=== PATIENT | female | born 1940 ===

== ENCOUNTER 2017-10-14 15:59 | Inpatient (IN) | payer MEDICARE, MEDICAID ==
[~2017-10-14] VITALS: Ht 165.1 cm; Wt 77.1 kg
[2017-10-14] MEDS ORDERED: IV NORMAL SALINE 1000 ML BAG IV ONE ×2 (16:15→17:30)
[2017-10-14] MEDS ORDERED: METF-494 PO (16:27)
[2017-10-14] MEDS ORDERED: METF500T6 PO (16:27)
[2017-10-14] MEDS ORDERED: ALPR0.25 PO (16:27)
[2017-10-14] MEDS ORDERED: SERT50TA PO (16:27)
[2017-10-14] MEDS ORDERED: SIMV20TA6 PO (16:27)
[2017-10-14] MEDS ORDERED: METO-356 PO (16:27)
[2017-10-14 17:14] LABS: CARBON DIOXIDE 26 mmol/L (21-32); CHLORIDE 97 mmol/L (98-107); CREATININE 1.5 mg/dL (0.6-1.3); GLUCOSE 228 mg/dL (74-106); POTASSIUM 2.9 mmol/L (3.5-5.1); UREA NITROGEN, BLOOD 24 mg/dL (7-18)
[2017-10-14 17:15] LABS: BASOPHILS % (AUTO) 0.3 % (0.0-2.0); HEMATOCRIT 34.9 % (31.2-41.9); LYMPHOCYTES # (AUTO) 0.8 K/uL (20.0-40.0); LYMPHOCYTES % (AUTO) 8.6 % (20.5-51.5); MEAN CORPUSCULAR HGB CONC 34 g/dL (32.3-35.6); MEAN CORPUSCULAR VOLUME 90.7 fL (75.5-95.3); MONOCYTES % (AUTO) 10.7 % (0.0-11.0); NEUTROPHILS # (AUTO) 7.5 K/uL (1.8-8.9); NEUTROPHILS % (AUTO) 80.4 % (38.5-71.5); PLATELET COUNT (AUTO) 190 K/uL (179-408); RED BLOOD CELL COUNT(AUTO) 3.85 MIL/uL (3.63-4.92); WHITE BLOOD COUNT (AUTO) 9.4 K/uL (3.8-11.8)
[2017-10-14 17:29] LABS: ALANINE AMINOTRANSFERASE 50 U/L (14-59); ALKALINE PHOSPHATASE 65 U/L (50-136); ASPARTATE AMINOTRANSFERASE 42 U/L (15-37); BILIRUBIN,DIRECT 0.1 mg/dL (0.0-0.2); BILIRUBIN,TOTAL 0.4 mg/dL (0.2-1.0); TOTAL PROTEIN, SERUM 6.9 g/dL (6.4-8.2)
[2017-10-14] MEDS ORDERED: POTASSIUM BICARBONATE/CIT AC 25 MEQ TABLET.EFF PO ONE (17:30)
[2017-10-14] MEDS ORDERED: LEVOFLOXACIN 750 MG/D5W 150 ML PIGGYBACK IV ONE (17:30)
[2017-10-14] MEDS ORDERED: POTASSIUM BICARBONATE/CIT AC 25 MEQ TABLET.EFF ONE (17:39)
[2017-10-14] MEDS ORDERED: LEVOFLOXACIN 750MG/D5W 150 ML IV ONE (17:39)
--- NOTE | 2017-10-14 18:30 | NUR ---
Per Dr. Page she has spoken with Dr. Chakraborty and pt to be admitted to tele. Pt resting with family at bedside, NAD noted.
--- NOTE | 2017-10-14 19:10 | NUR ---
Hands off report given to PRAFUL Christensen. Pending tele admission post change of shift.
--- NOTE | 2017-10-14 20:50 | NUR ---
REPORT GIVEN TO PRAUFL MENDOZA
--- NOTE | 2017-10-14 21:50 | NUR ---
Pt. admitted to TELEMETRY, under care of Dr. UREÑA Belongs List completed
[2017-10-14] MEDS ORDERED: MELATONIN 3 MG TABLET PO PRN (22:00)
[2017-10-14] MEDS ORDERED: MORPHINE SULFATE 4 MG/1 ML DISP.SYRIN IV PRN (22:00)
[2017-10-14] MEDS ORDERED: ONDANSETRON 4 MG/2 ML VIAL IV PRN (22:00)
[2017-10-14] MEDS ORDERED: INSULIN REGULAR, HUMAN 300 UNIT/3 ML VIAL SQ PRN (22:00)
[2017-10-14] MEDS ORDERED: AZITHROMYCIN IV 500 MG in IV DEXTROSE 5% 250 ML IV SCH (22:00)
[2017-10-14] MEDS ORDERED: ACETAMINOPHEN 325 MG TABLET PO PRN (22:00)
[2017-10-14] MEDS ORDERED: ALPRAZOLAM 0.25 MG TABLET PO PRN (22:00)
[2017-10-14] MEDS ORDERED: MIRALAX 17 GM POWD.PACK PO PRN (22:00)
[2017-10-14] MEDS ORDERED: DEXTROSE 50% 50 ML DISP.SYRIN IV PRN (22:00)
[2017-10-14] MEDS ORDERED: ALBUTEROL SULFATE 2.5 MG/3 ML NEBU NEB PRN (22:00)
[2017-10-14 22:20] VITALS: BP 100/56
[2017-10-15] MEDS ORDERED: AZITHROMYCIN 500 MG VIAL IV ONE (00:05)
[2017-10-15] MEDS ORDERED: CEFTRIAXONE 1 G VIAL ONE (00:05)
[2017-10-15 00:16] VITALS: BP 122/60
[2017-10-15] MEDS: CEFTRIAXONE 1 G in IV DEXTROSE 5% 50 ML IV SCH ×2 (00:29→21:38)
[2017-10-15 04:00] VITALS: BP 109/63
[2017-10-15] MEDS: PANTOPRAZOLE SODIUM 40 MG TABLET.DR PO SCH (06:26)
[2017-10-15] MEDS: BLOOD SUGAR DIAGNOSTIC 1 EACH STRIP VI SCH ×4 (06:30→20:56)
[2017-10-15 06:50] LABS: ALANINE AMINOTRANSFERASE 43 U/L (14-59); ALKALINE PHOSPHATASE 52 U/L (50-136); ASPARTATE AMINOTRANSFERASE 31 U/L (15-37); BILIRUBIN,TOTAL 0.4 mg/dL (0.2-1.0); CARBON DIOXIDE 28 mmol/L (21-32); CHLORIDE 98 mmol/L (98-107); CHOLESTEROL 150 mg/dL (<200); GLUCOSE 136 mg/dL (74-106); HDL CHOLESTEROL 41 mg/dL (40-60); MAGNESIUM 1.4 mg/dL (1.8-2.4); PHOSPHOROUS 2.3 mg/dL (2.5-4.9); POTASSIUM 3.2 mmol/L (3.5-5.1); TOTAL PROTEIN, SERUM 6.3 g/dL (6.4-8.2); TRIGLYCERIDES 105 MG/DL (30-150); UREA NITROGEN, BLOOD 18 mg/dL (7-18)
--- NOTE | 2017-10-15 07:05 | NUR ---
RECEIVED REPORT FROM GOLD LAYER NURSE, PATIENT IN BED AWAKE, NO DISTRESS NOTED AT THIS TIME, BED IN LOW POSITION, SIDE RAILS UP X2. PATIENT REPORTS HAVING SLEPT COMFORTABLE AND NO PAIN AT THIS TIME.
[2017-10-15 07:27] LABS: BASOPHILS % (AUTO) 0.4 % (0.0-2.0); EOSINOPHILS % (AUTO) 0.5 % (0.0-7.0); HEMOGLOBIN 11.2 g/dL (10.9-14.3); LYMPHOCYTES # (AUTO) 0.8 K/uL (20.0-40.0); LYMPHOCYTES % (AUTO) 12.2 % (20.5-51.5); MEAN CORPUSCULAR HEMOGLOBIN 31.6 uug (24.7-32.8); MEAN CORPUSCULAR HGB CONC 35 g/dL (32.3-35.6); MONOCYTES # (AUTO) 0.7 K/uL (2.0-10.0); MONOCYTES % (AUTO) 10.4 % (0.0-11.0); NEUTROPHILS # (AUTO) 5.1 K/uL (1.8-8.9); NEUTROPHILS % (AUTO) 76.5 % (38.5-71.5); PLATELET COUNT (AUTO) 186 K/uL (179-408); RED BLOOD CELL COUNT(AUTO) 3.55 MIL/uL (3.63-4.92)
[2017-10-15 07:39] LABS: WHITE BLOOD COUNT (AUTO) 6.6 K/uL (3.8-11.8)
[2017-10-15 08:35] LABS: *BILIRUBIN,URIN NEGATIVE (NEGATIVE); *BLOOD, URINE NEGATIVE (NEGATIVE); *CLARITY,URINE SLIGHTLY CLOUDY (CLEAR); *COLOR,URINE YELLOW (YELLOW); *KETONES,URINE NEGATIVE (NEGATIVE); *PROTEIN,URINE 1+ (NEGATIVE); *UROBILINOGEN,URINE 0.2 E.U./dl (NORMAL); LEUKOCYTE ESTERASE ,URINE 1+ (NEGATIVE); NITRITE, URINE POSITIVE (NEGATIVE); PH,URINE 5.5 (5.0-8.0); UGLUCOSE NEGATIVE (NEGATIVE)
[2017-10-15] MEDS: SERTRALINE HCL 50 MG TABLET PO SCH (08:55)
[2017-10-15] MEDS: POTASSIUM CHLORIDE 20 MEQ in IV NS 1000 ML 1,000 ML IV PRN (09:03)
[2017-10-15 09:32] LABS: RBC,URINE 0-3 /HPF (0-3)
[2017-10-15 09:33] LABS: BACTERIA,URINE MODERATE /HPF (NONE SEEN); SQUAMOUS EPITHELIAL CELL,UR FEW /HPF (NONE SEEN)
[2017-10-15] MEDS ORDERED: POTASSIUM CHLORIDE 20 MEQ TAB.PRT.SR PO ONE (10:45)
[2017-10-15] MEDS ORDERED: NEUTRA PHOS PACKET PO ONE (10:45)
[2017-10-15 11:27] VITALS: BP 114/65
[2017-10-15] MEDS: MAGNESIUM SULFATE/D5W 100 ML IV SCH ×2 (11:27→13:18)
[2017-10-15] MEDS ORDERED: ENOXAPARIN SODIUM 30 MG/0.3 ML DISP.SYRIN SUBCUT SCH (15:15)
[2017-10-15 16:29] VITALS: BP 118/73
[2017-10-15] MEDS: METFORMIN HCL 500 MG TABLET PO SCH (16:55)
--- NOTE | 2017-10-15 18:06 | NUR ---
Patient was seen by FINANCIAL OFFICER today and has been cooperative with prescribed care. Family has been at patients bedside throughout the day. Currently patient is in bed, no distress noted, bed in low position, side rails up x2. Patient does ambulate to and from bathroom steadily, was seen by PT and cleared from daily therapy.
--- NOTE | 2017-10-15 19:30 | NUR ---
RECEIVED PATIENT IN BED ALERT ORIENTED, NO SOB NO CHEST PAIN, NO COMPLAIN OF PAIN AT THIS TIME, V/S WNL AFEBRILE, CONTINENT OF BOWEL AND BLADDER, REQUIRES MINIMUM ASSIST WITH ADL'S FAMILY AT THIS TIME. CONT TO MONITOR.
[2017-10-15] MEDS: DOCUSATE SODIUM 100 MG CAPSULE PO SCH (20:51)
[2017-10-15] MEDS: SIMVASTATIN 20 MG TABLET PO SCH (20:51)
[2017-10-15 20:55] VITALS: BP 144/79
--- NOTE | 2017-10-15 21:00 | NUR ---
PATIENT BLOOD SUGAR 132, REFUSED REGULAR INSULIN, PREFER TO TAKE METFORMIN FOR DIABETES, AWARE, CONT TO MONITOR.
[2017-10-15] MEDS: ENOXAPARIN SODIUM 40 MG/0.4 ML DISP.SYRIN SQ SCH (21:17)
[2017-10-15] MEDS ORDERED: AZITHROMYCIN IV 500 MG in IV DEXTROSE 5% 250 ML IV SCH (23:00)
[2017-10-16 04:00] VITALS: BP 109/78
[2017-10-16] MEDS: POTASSIUM CHLORIDE 20 MEQ in IV NS 1000 ML 1,000 ML IV PRN (04:56)
[2017-10-16] MEDS: BLOOD SUGAR DIAGNOSTIC 1 EACH STRIP VI SCH ×4 (05:20→20:50)
[2017-10-16] MEDS: PANTOPRAZOLE SODIUM 40 MG TABLET.DR PO SCH (05:47)
--- NOTE | 2017-10-16 05:55 | NUR ---
PATIENT SLEPT MOST OF THE NIGHT NO SOB NO CHEST PAIN NOTED. V.S WNL AFEBRILE. CONT ATB FOR UTI WITH NO ADVERSE REACTION NOTED, ASSISTED WITH TOILETING, CALL LIGHT WITHIN REACH.
[2017-10-16 06:46] LABS: BASOPHILS % (AUTO) 0.7 % (0.0-2.0); EOSINOPHILS % (AUTO) 0.9 % (0.0-7.0); HEMOGLOBIN 12.1 g/dL (10.9-14.3); LYMPHOCYTES % (AUTO) 22.3 % (20.5-51.5); MEAN CORPUSCULAR HGB CONC 35 g/dL (32.3-35.6); MEAN CORPUSCULAR VOLUME 89.3 fL (75.5-95.3); MONOCYTES # (AUTO) 0.6 K/uL (2.0-10.0); MONOCYTES % (AUTO) 13.5 % (0.0-11.0); NEUTROPHILS # (AUTO) 2.8 K/uL (1.8-8.9); NEUTROPHILS % (AUTO) 62.6 % (38.5-71.5); PLATELET COUNT (AUTO) 207 K/uL (179-408); RED BLOOD CELL COUNT(AUTO) 3.92 MIL/uL (3.63-4.92); WHITE BLOOD COUNT (AUTO) 4.5 K/uL (3.8-11.8)
[2017-10-16 06:53] LABS: ALANINE AMINOTRANSFERASE 41 U/L (14-59); ALKALINE PHOSPHATASE 64 U/L (50-136); ASPARTATE AMINOTRANSFERASE 33 U/L (15-37); BILIRUBIN,TOTAL 0.2 mg/dL (0.2-1.0); CARBON DIOXIDE 32 mmol/L (21-32); CHLORIDE 102 mmol/L (98-107); CREATININE 0.9 mg/dL (0.6-1.3); GLUCOSE 158 mg/dL (74-106); MAGNESIUM 1.9 mg/dL (1.8-2.4); PHOSPHOROUS 3.3 mg/dL (2.5-4.9); POTASSIUM 3.5 mmol/L (3.5-5.1); TOTAL PROTEIN, SERUM 6.5 g/dL (6.4-8.2); UREA NITROGEN, BLOOD 12 mg/dL (7-18)
--- NOTE | 2017-10-16 07:30 | NUR ---
Awake, alert, oriented x 3, comfortable. IVF infusing
[2017-10-16] MEDS: METFORMIN HCL 500 MG TABLET PO SCH ×2 (08:33→17:40)
[2017-10-16] MEDS: SERTRALINE HCL 50 MG TABLET PO SCH (08:33)
--- NOTE | 2017-10-16 09:00 | NUR ---
Refused Insulin coverage
[2017-10-16 11:05] VITALS: BP 115/65
--- NOTE | 2017-10-16 15:00 | NUR ---
IV site hurting, reinserted to RFA G22. IVF restarted, infusing well
[2017-10-16 15:14] VITALS: BP 124/76
--- NOTE | 2017-10-16 17:40 | NUR ---
BG 133, still refused Insulin sliding scale
--- NOTE | 2017-10-16 18:29 | NUR ---
Eating fairly. Afebrile.
--- NOTE | 2017-10-16 19:00 | NUR ---
RECEIVED IN BED ALERT ORIENTED, NO SOB NO CHEST PAIN, NO S/S OF HYPO/HYPERGLYCEMIA NOTED, CONTINET OF BOWEL AND BLADDER, STAND BY ASSIST WITH TOILETING, FAMILY AT BED SIDE.
[2017-10-16 20:00] VITALS: BP 139/73
[2017-10-16] MEDS: SIMVASTATIN 20 MG TABLET PO SCH (20:51)
[2017-10-16] MEDS: DOCUSATE SODIUM 100 MG CAPSULE PO SCH (20:51)
[2017-10-16] MEDS: ENOXAPARIN SODIUM 40 MG/0.4 ML DISP.SYRIN SQ SCH (20:56)
[2017-10-16] MEDS: CEFTRIAXONE 1 G in IV DEXTROSE 5% 50 ML IV SCH (21:00)
--- NOTE | 2017-10-17 00:53 | NUR ---
PATIENT IN BED NO SOB NO CHEST PAIN, AFEBRILE, NO COMPLAIN OF PAIN AT THIS TIME. ENDORSED TO RN TAKING OVER. CALL LIGHT WITHIN REACH.
--- NOTE | 2017-10-17 01:00 | NUR ---
ASSUME PATIENT CARE, PATIENT RESTING PEACEFULLY
[2017-10-17 04:00] VITALS: BP 129/69
[2017-10-17] MEDS: PANTOPRAZOLE SODIUM 40 MG TABLET.DR PO SCH (06:36)
[2017-10-17] MEDS: POTASSIUM CHLORIDE 20 MEQ in IV NS 1000 ML 1,000 ML IV PRN (06:39)
[2017-10-17] MEDS: BLOOD SUGAR DIAGNOSTIC 1 EACH STRIP VI SCH ×2 (06:42→12:46)
--- NOTE | 2017-10-17 06:52 | NUR ---
PATIENT IS SLEEPING AT PRESENT. NO C/O PAIN OR ACUTE DISTRESS REPORTED. PATIENT VOIDING W/O DIFFICULTY. NO SOB OR C/O CHEST PAIN ON THIS SHIFT. SAFETY MEASURES MAINTAINED AT ALL TIMES
--- NOTE | 2017-10-17 08:00 | NUR ---
AWAKE ALERT COOPERATE WELL NO PAIN OR SOB RESTING WELL WITH CALL HOWE IN REACH
[2017-10-17] MEDS: SERTRALINE HCL 50 MG TABLET PO SCH (08:16)
[2017-10-17] MEDS: METFORMIN HCL 500 MG TABLET PO SCH (08:16)
[2017-10-17 11:09] VITALS: BP 135/65
--- NOTE | 2017-10-17 12:30 | NUR ---
Tanner PRADO SEEN PATIENT AND LAB RESULT AND ORDER OK TO DISCHARGE HOME WITH PRECEMILYPTION TODAY D/C INSTRUCTION GIVEN TO PATIENT AND FAMILY REGARDING NEED TO F/U WITH OWN PMD CONTINUE HOME MEDICINE ORDER/PRECRIPTION AND EDUCATION PK GAVE ,VERBALIZES UNDERSTAND AND SIGNS D/C SHEET HL DISCONTINUE PRIOR D/C HOME TODAY
--- NOTE | 2017-10-17 13:00 | NUR ---
SARAH EXPLAINED ALL HOME MEDICINE ,UNDERSTAND
--- NOTE | 2017-10-17 14:30 | NUR ---
D/C HOME WITH HER BELONGING CONDITION STABLE NO PAIN OR SOB ACCOMPANIES WITH FAMILY
== END 2017-10-17 14:35 | disposition home or self-care (01) | DRG 871 ==
LOC: ER 16:04 → TELE 20:58 → MED 10-15 18:15
PROVIDERS: ADMIT Internal Medicine; ATTEND Internal Medicine
DX: A41.9 Sepsis, unspecified organism (principal); N17.0 Acute kidney failure with tubular necrosis; I13.0 Hypertensive heart and chronic kidney disease with heart failure and stage 1 through stage 4 chronic kidney disease, or unspecified chronic kidney disease; I50.32 Chronic diastolic (congestive) heart failure; N39.0 Urinary tract infection, site not specified; J98.11 Atelectasis; E44.0 Moderate protein-calorie malnutrition; E11.22 Type 2 diabetes mellitus with diabetic chronic kidney disease; N18.9 Chronic kidney disease, unspecified; Z79.84 Long term (current) use of oral hypoglycemic drugs; E78.5 Hyperlipidemia, unspecified; E83.42 Hypomagnesemia; E11.65 Type 2 diabetes mellitus with hyperglycemia; E83.39 Other disorders of phosphorus metabolism; E87.6 Hypokalemia; E66.9 Obesity, unspecified; Z68.28 Body mass index [BMI] 28.0-28.9, adult; Z71.3 Dietary counseling and surveillance; G47.00 Insomnia, unspecified; R74.0 Nonspecific elevation of levels of transaminase and lactic acid dehydrogenase [LDH]; Z98.42 Cataract extraction status, left eye; Z98.41 Cataract extraction status, right eye
CPT/HCPCS: 36415; 70030-TC; 71045; 83605; 83735; 84100; 84443; 85025; 85730; 87040; 87077; 87086; 93005; 93307; A4663; J0456; J0696; J1650; J1815; J1956; J3475; J3480; J7030; J7040; J7050; J7060

== ENCOUNTER 2017-10-23 21:23 | Inpatient (IN) | payer MEDICARE, MEDICAID ==
[~2017-10-23] VITALS: Ht 162.6 cm; Wt 78.5 kg
[~2017-10-23 21:23] MED LIST: ALPR0.25 PO; METF-494 PO; METF500T6 PO; METO-356 PO; SERT50TA PO; SIMV20TA6 PO
[2017-10-23] MEDS ORDERED: DEXAMETHASONE SOD PHOSPHATE 4 MG INJ IV ONE (22:00)
[2017-10-23] MEDS ORDERED: CEFTRIAXONE 1 G in IV DEXTROSE 5% 50 ML IV ONE (22:00)
[2017-10-23] MEDS ORDERED: IV NORMAL SALINE 1000 ML BAG IV ONE (22:00)
[2017-10-23] MEDS ORDERED: GENTAMICIN SULFATE INJ 80 MG in IV DEXTROSE 5% 100 ML IV ONE (22:00)
[2017-10-23] MEDS ORDERED: CEFTRIAXONE 1 G VIAL ONE (22:12)
[2017-10-23] MEDS ORDERED: DEXAMETHASONE SOD PHOSPHATE 10 MG INJ ONE (22:13)
[2017-10-23] MEDS ORDERED: CEPH500C2 PO (22:16)
[2017-10-23] MEDS ORDERED: LEVO500T90 PO (22:16)
[2017-10-23 22:17] LABS: *BILIRUBIN,URIN NEGATIVE (NEGATIVE); *BLOOD, URINE NEGATIVE (NEGATIVE); *COLOR,URINE YELLOW (YELLOW); *KETONES,URINE NEGATIVE (NEGATIVE); *PROTEIN,URINE NEGATIVE (NEGATIVE); *UROBILINOGEN,URINE 0.2 E.U./dl (NORMAL); BASOPHILS # (AUTO) 0.1 K/uL (0.0-8.0); BASOPHILS % (AUTO) 0.7 % (0.0-2.0); EOSINOPHILS # (AUTO) 0.1 K/uL (0.0-0.7); HEMOGLOBIN 11.7 g/dL (10.9-14.3); LEUKOCYTE ESTERASE ,URINE 1+ (NEGATIVE); MEAN CORPUSCULAR HEMOGLOBIN 30.6 uug (24.7-32.8); MEAN CORPUSCULAR HGB CONC 34 g/dL (32.3-35.6); MEAN CORPUSCULAR VOLUME 89.2 fL (75.5-95.3); MONOCYTES # (AUTO) 0.7 K/uL (2.0-10.0); MONOCYTES % (AUTO) 6.5 % (0.0-11.0); NEUTROPHILS # (AUTO) 7.5 K/uL (1.8-8.9); NEUTROPHILS % (AUTO) 72.8 % (38.5-71.5); NITRITE, URINE NEGATIVE (NEGATIVE); PLATELET COUNT (AUTO) 391 K/uL (179-408); RED BLOOD CELL COUNT(AUTO) 3.81 MIL/uL (3.63-4.92); UGLUCOSE NEGATIVE (NEGATIVE); WHITE BLOOD COUNT (AUTO) 10.2 K/uL (3.8-11.8)
[2017-10-23 22:19] LABS: *CLARITY,URINE SLIGHTLY HAZY (CLEAR)
[2017-10-23 22:30] LABS: CARBON DIOXIDE 25 mmol/L (21-32); CHLORIDE 99 mmol/L (98-107); GLUCOSE 142 mg/dL (74-106); POTASSIUM 3.9 mmol/L (3.5-5.1); UREA NITROGEN, BLOOD 19 mg/dL (7-18)
[2017-10-23 22:35] LABS: ALANINE AMINOTRANSFERASE 37 U/L (14-59); ALKALINE PHOSPHATASE 61 U/L (50-136); ASPARTATE AMINOTRANSFERASE 16 U/L (15-37); BACTERIA,URINE NONE SEEN /HPF (NONE SEEN); BILIRUBIN,DIRECT 0.1 mg/dL (0.0-0.2); BILIRUBIN,TOTAL 0.3 mg/dL (0.2-1.0); MUCUS,URINE FEW /LPF (0-FEW); RBC,URINE 0-3 /HPF (0-3); SQUAMOUS EPITHELIAL CELL,UR FEW /HPF (NONE SEEN); TOTAL PROTEIN, SERUM 7.2 g/dL (6.4-8.2)
[2017-10-23] MEDS ORDERED: GENTAMICIN SULFATE 80 MG/2 ML VIAL ONE (22:41)
--- NOTE | 2017-10-23 22:49 | NUR ---
LACTIC ACID 2.7. MADE AWARE.
[2017-10-23] MEDS ORDERED: ALBUTEROL SULFATE 2.5 MG/3 ML NEBU NEB PRN (23:00)
[2017-10-23] MEDS ORDERED: ALPRAZOLAM 0.25 MG TABLET PO PRN (23:00)
[2017-10-23] MEDS ORDERED: ONDANSETRON 4 MG/2 ML VIAL IV PRN (23:00)
[2017-10-23] MEDS ORDERED: ACETAMINOPHEN 325 MG TABLET PO PRN (23:00)
[2017-10-23] MEDS ORDERED: MORPHINE SULFATE 4 MG/1 ML DISP.SYRIN IV PRN (23:00)
[2017-10-23 23:11] LABS: BAND % (MANUAL) 1 % (0-10); EOSINOPHILS % (MANUAL) 1 % (0-8); LYMPHOCYTES % (MANUAL) 19 % (20-40); METAMYELOCYTES % 4 % (0-1); MONOCYTES % (MANUAL) 4 % (2-10); NEUTROPHILS % (MANUAL) 67 % (42-75); PROMYELOCYTES % 1 %
[2017-10-23] MEDS ORDERED: DEXTROSE 50% 50 ML DISP.SYRIN IV PRN (23:15)
--- NOTE | 2017-10-23 23:27 | NUR ---
REPORT GIVEN TO TELEMETRY NURSE, PRAFUL MENDOZA.
--- NOTE | 2017-10-23 23:40 | NUR ---
Pt. admitted to TELEMETRY, under care of Dr. UREÑA Belongs List completed
--- NOTE | 2017-10-23 23:48 | NUR ---
POST FLUID REASSESSMENT INDORSED TO INPATIENT RN. IVF INFUSING AT TIME OF ADMISSION.
[2017-10-24 00:10] VITALS: BP 137/79
[2017-10-24] MEDS ORDERED: AZITHROMYCIN 500 MG VIAL IV ONE (00:50)
[2017-10-24] MEDS: TEMAZEPAM 7.5 MG CAPSULE PO PRN (01:16)
[2017-10-24] MEDS: AZITHROMYCIN IV 500 MG in IV DEXTROSE 5% 250 ML IV SCH ×2 (01:22→22:32)
[2017-10-24 04:00] VITALS: BP 123/69
[2017-10-24] MEDS: PANTOPRAZOLE SODIUM 40 MG TABLET.DR PO SCH (06:10)
[2017-10-24 06:14] LABS: ALANINE AMINOTRANSFERASE 32 U/L (14-59); ALKALINE PHOSPHATASE 57 U/L (50-136); ASPARTATE AMINOTRANSFERASE 11 U/L (15-37); BILIRUBIN,TOTAL 0.2 mg/dL (0.2-1.0); CARBON DIOXIDE 25 mmol/L (21-32); CHLORIDE 105 mmol/L (98-107); GLUCOSE 226 mg/dL (74-106); MAGNESIUM 1.4 mg/dL (1.8-2.4); PHOSPHOROUS 2.8 mg/dL (2.5-4.9); TOTAL PROTEIN, SERUM 6.7 g/dL (6.4-8.2); UREA NITROGEN, BLOOD 13 mg/dL (7-18)
[2017-10-24] MEDS: IV 1/2NS 1000 ML 1,000 ML IV PRN (06:14)
[2017-10-24 06:18] LABS: BASOPHILS % (AUTO) 0.2 % (0.0-2.0); HEMATOCRIT 33.9 % (31.2-41.9); HEMOGLOBIN 11.7 g/dL (10.9-14.3); MEAN CORPUSCULAR HEMOGLOBIN 30.7 uug (24.7-32.8); MEAN CORPUSCULAR HGB CONC 34 g/dL (32.3-35.6); MEAN CORPUSCULAR VOLUME 89.2 fL (75.5-95.3); MONOCYTES # (AUTO) 0.1 K/uL (2.0-10.0); MONOCYTES % (AUTO) 1.3 % (0.0-11.0); NEUTROPHILS # (AUTO) 6.5 K/uL (1.8-8.9); NEUTROPHILS % (AUTO) 85.5 % (38.5-71.5); PLATELET COUNT (AUTO) 365 K/uL (179-408); WHITE BLOOD COUNT (AUTO) 7.6 K/uL (3.8-11.8)
[2017-10-24] MEDS: BLOOD SUGAR DIAGNOSTIC 1 EACH STRIP VI SCH ×4 (06:30→20:47)
--- NOTE | 2017-10-24 07:30 | NUR ---
patient resting comfortably in bed at this time. stable. no s/s of distress. afebrile. ambulatory. a/ox3. will continue to monitor. bed alarm on, call light within reach, bed in locked/low position, side rails up x2.
[2017-10-24] MEDS: INSULIN REGULAR, HUMAN 300 UNIT/3 ML VIAL SQ PRN ×3 (07:55→20:53)
[2017-10-24] MEDS: SERTRALINE HCL 50 MG TABLET PO SCH (08:00)
[2017-10-24] MEDS: METFORMIN HCL 500 MG TABLET PO SCH ×2 (08:00→17:19)
[2017-10-24 09:25] VITALS: BP 108/49
[2017-10-24 11:34] VITALS: BP 106/56
[2017-10-24 15:36] VITALS: BP 120/48
[2017-10-24] MEDS: MAGNESIUM SULFATE/D5W 100 ML IV SCH ×4 (15:39→19:20)
--- NOTE | 2017-10-24 15:54 | NUR ---
patient refuses insulin coverage for blood sugar of 139. Patient is afraid of experiencing hypoglycemia. Education provided. Patient continues to refuse.
[2017-10-24] MEDS: METOPROLOL SUCCINATE XL 25 MG TAB.SR.24H PO SCH (17:20)
[2017-10-24 19:42] VITALS: BP 126/55
--- NOTE | 2017-10-24 20:00 | NUR ---
PATIENT IS AWAKE IN BED, AAOX3. DENIES PAIN OR ANY DISTRESS ON ASSESSMENT, NO FEVER. SAFETY MEASURES IN PLACE CALL LIGHT LEFT WITHIN PATIENT'S REACH
[2017-10-24] MEDS: SIMVASTATIN 20 MG TABLET PO SCH (20:44)
[2017-10-24] MEDS: CEFTRIAXONE 1 G in IV DEXTROSE 5% 50 ML IV SCH (20:44)
[2017-10-24] MEDS: DOCUSATE SODIUM 100 MG CAPSULE PO SCH (20:44)
[2017-10-25 03:33] VITALS: BP 126/78
[2017-10-25] MEDS: PANTOPRAZOLE SODIUM 40 MG TABLET.DR PO SCH (06:28)
[2017-10-25] MEDS: IV 1/2NS 1000 ML 1,000 ML IV PRN ×2 (06:28→19:28)
[2017-10-25] MEDS: BLOOD SUGAR DIAGNOSTIC 1 EACH STRIP VI SCH ×4 (06:40→20:30)
--- NOTE | 2017-10-25 06:54 | NUR ---
PATIENT SLEPT WELL THROUGH THE SHIFT. NO C/O PAIN OR ACUTE DISTRESS ON THIS SHIFT. NO FEVER,VSS WNL. SAFETY MEASURES MAINTAINED AT ALL TIMES. BLOOD SUGAR UNDER CONTROL
[2017-10-25 07:30] LABS: CARBON DIOXIDE 28 mmol/L (21-32); CHLORIDE 104 mmol/L (98-107); CREATININE 0.9 mg/dL (0.6-1.3); GLUCOSE 109 mg/dL (74-106); MAGNESIUM 2.1 mg/dL (1.8-2.4); PHOSPHOROUS 3.2 mg/dL (2.5-4.9); POTASSIUM 3.7 mmol/L (3.5-5.1); UREA NITROGEN, BLOOD 16 mg/dL (7-18)
[2017-10-25 07:46] LABS: BASOPHILS % (AUTO) 0.2 % (0.0-2.0); EOSINOPHILS % (AUTO) 0.4 % (0.0-7.0); HEMOGLOBIN 11.2 g/dL (10.9-14.3); LYMPHOCYTES # (AUTO) 2.6 K/uL (20.0-40.0); LYMPHOCYTES % (AUTO) 19.8 % (20.5-51.5); MEAN CORPUSCULAR HEMOGLOBIN 30.5 uug (24.7-32.8); MEAN CORPUSCULAR HGB CONC 34 g/dL (32.3-35.6); MEAN CORPUSCULAR VOLUME 90.2 fL (75.5-95.3); MONOCYTES # (AUTO) 0.9 K/uL (2.0-10.0); MONOCYTES % (AUTO) 6.9 % (0.0-11.0); NEUTROPHILS # (AUTO) 9.7 K/uL (1.8-8.9); NEUTROPHILS % (AUTO) 72.7 % (38.5-71.5); PLATELET COUNT (AUTO) 370 K/uL (179-408); RED BLOOD CELL COUNT(AUTO) 3.66 MIL/uL (3.63-4.92)
[2017-10-25 07:47] LABS: WHITE BLOOD COUNT (AUTO) 13.3 K/uL (3.8-11.8)
--- NOTE | 2017-10-25 08:00 | NUR ---
Received pt in bed awake, alert, [place] speaker only some Tuvaluan, verbally responsive, afebrile continue ivf, and encoutage pos, call light in reach.
[2017-10-25] MEDS: METFORMIN HCL 500 MG TABLET PO SCH ×2 (08:52→18:06)
[2017-10-25] MEDS: SERTRALINE HCL 50 MG TABLET PO SCH (08:52)
[2017-10-25 11:03] VITALS: BP 132/78
--- NOTE | 2017-10-25 13:00 | NUR ---
Pt in bed awake, alert, riented x4 verbally responsive, afebrile, no c/o discomfort, call light in reach.
[2017-10-25 16:07] VITALS: BP 128/66
--- NOTE | 2017-10-25 18:00 | NUR ---
pt in bed afebrile, encourage po fluids, ivf infusing, no c/o discomfort, acll lightin reach.
[2017-10-25] MEDS: METOPROLOL SUCCINATE XL 25 MG TAB.SR.24H PO SCH (18:07)
[2017-10-25 19:00] VITALS: BP 130/81
--- NOTE | 2017-10-25 19:00 | NUR ---
1900 pt watching tv 2000 pt watching tv 2100 pt watching tv with son 2200 other family at bedside 2300 pt tired and ready for bed 0000 pt asleep 0100 pt asleep 0200 pt asleep 0300 pt asleep 0400 pt asleep
[2017-10-25] MEDS: CEFTRIAXONE 1 G in IV DEXTROSE 5% 50 ML IV SCH (20:28)
[2017-10-25] MEDS: LACTOBACILLUS RHAMNOSUS GG 1 EACH CAPSULE PO SCH (20:29)
[2017-10-25] MEDS: DOCUSATE SODIUM 100 MG CAPSULE PO SCH (20:29)
[2017-10-25] MEDS: SIMVASTATIN 20 MG TABLET PO SCH (20:29)
[2017-10-25] MEDS: AZITHROMYCIN IV 500 MG in IV DEXTROSE 5% 250 ML IV SCH (22:56)
[2017-10-25] MEDS: TEMAZEPAM 7.5 MG CAPSULE PO PRN (23:00)
[2017-10-26 04:00] VITALS: BP 116/63
[2017-10-26] MEDS: PANTOPRAZOLE SODIUM 40 MG TABLET.DR PO SCH (05:59)
[2017-10-26] MEDS: BLOOD SUGAR DIAGNOSTIC 1 EACH STRIP VI SCH ×2 (06:05→11:44)
[2017-10-26 06:59] LABS: ALANINE AMINOTRANSFERASE 26 U/L (14-59); ALKALINE PHOSPHATASE 49 U/L (50-136); ASPARTATE AMINOTRANSFERASE 18 U/L (15-37); BILIRUBIN,TOTAL 0.2 mg/dL (0.2-1.0); CARBON DIOXIDE 29 mmol/L (21-32); CHLORIDE 104 mmol/L (98-107); CREATININE 0.9 mg/dL (0.6-1.3); GLUCOSE 99 mg/dL (74-106); MAGNESIUM 1.6 mg/dL (1.8-2.4); PHOSPHOROUS 3.8 mg/dL (2.5-4.9); POTASSIUM 3.8 mmol/L (3.5-5.1); TOTAL PROTEIN, SERUM 6.4 g/dL (6.4-8.2); UREA NITROGEN, BLOOD 16 mg/dL (7-18)
--- NOTE | 2017-10-26 07:20 | NUR ---
received report from iron carrier nurse, patient in bed awake, no distress noted at this time, bed in low position, side rails up x2. bed alarm on.
[2017-10-26 07:24] LABS: BASOPHILS # (AUTO) 0.1 K/uL (0.0-8.0); BASOPHILS % (AUTO) 0.6 % (0.0-2.0); EOSINOPHILS # (AUTO) 0.1 K/uL (0.0-0.7); EOSINOPHILS % (AUTO) 1.4 % (0.0-7.0); HEMATOCRIT 35.3 % (31.2-41.9); HEMOGLOBIN 11.9 g/dL (10.9-14.3); LYMPHOCYTES # (AUTO) 2.6 K/uL (20.0-40.0); LYMPHOCYTES % (AUTO) 29.8 % (20.5-51.5); MEAN CORPUSCULAR HEMOGLOBIN 30.7 uug (24.7-32.8); MEAN CORPUSCULAR HGB CONC 34 g/dL (32.3-35.6); MEAN CORPUSCULAR VOLUME 90.8 fL (75.5-95.3); MONOCYTES # (AUTO) 0.8 K/uL (2.0-10.0); MONOCYTES % (AUTO) 9.2 % (0.0-11.0); NEUTROPHILS # (AUTO) 5.2 K/uL (1.8-8.9); PLATELET COUNT (AUTO) 355 K/uL (179-408); RED BLOOD CELL COUNT(AUTO) 3.88 MIL/uL (3.63-4.92)
[2017-10-26 07:29] LABS: WHITE BLOOD COUNT (AUTO) 8.8 K/uL (3.8-11.8)
[2017-10-26] MEDS: METFORMIN HCL 500 MG TABLET PO SCH (08:38)
[2017-10-26] MEDS: LACTOBACILLUS RHAMNOSUS GG 1 EACH CAPSULE PO SCH (08:38)
[2017-10-26] MEDS: SERTRALINE HCL 50 MG TABLET PO SCH (08:38)
[2017-10-26 11:26] VITALS: BP 112/68
[2017-10-26] MEDS: MAGNESIUM SULFATE/D5W 100 ML IV SCH ×2 (15:06→15:37)
[2017-10-26 15:16] VITALS: BP 133/61
[2017-10-26] MEDS ORDERED: LEVO500T2 PO (16:27)
--- NOTE | 2017-10-26 17:00 | NUR ---
Patient was given discharge instructions, iv removed, and offered follow up appointment with PCP, which patient declined. Discharge teaching performed, and prescription was given to patients daughter to picked edge sewing machine operator. Patient was escorted to patients daughters car.
== END 2017-10-26 17:00 | disposition home health service (06) | DRG 871 ==
LOC: ER 21:24 → TELE 23:31 → MED 10-24 13:29
PROVIDERS: ADMIT Internal Medicine; ATTEND Internal Medicine
DX: A41.9 Sepsis, unspecified organism (principal); J18.9 Pneumonia, unspecified organism; I11.0 Hypertensive heart disease with heart failure; E87.2 Acidosis; N39.0 Urinary tract infection, site not specified; E11.65 Type 2 diabetes mellitus with hyperglycemia; I50.32 Chronic diastolic (congestive) heart failure; E66.9 Obesity, unspecified; Z68.29 Body mass index [BMI] 29.0-29.9, adult; Z71.3 Dietary counseling and surveillance; E78.5 Hyperlipidemia, unspecified; Z98.42 Cataract extraction status, left eye; Z98.41 Cataract extraction status, right eye; G47.00 Insomnia, unspecified; Z79.84 Long term (current) use of oral hypoglycemic drugs; F32.9 Major depressive disorder, single episode, unspecified; Z87.440 Personal history of urinary (tract) infections; R74.0 Nonspecific elevation of levels of transaminase and lactic acid dehydrogenase [LDH]
CPT/HCPCS: 36415; 70030-TC; 71045; 83605; 83735; 84100; 85025; 85730; 87040; 87086; 93005; A4663; J0456; J0696; J1100; J1580; J1815; J2405; J3475; J3490; J7030; J7040; J7060